=== PATIENT | female | born 1975 | race Caucasian/White ===

== ENCOUNTER 2017-01-19 10:12 | Emergency (ER) | payer SELFPAY ==
[~2017-01-19] VITALS: Ht 165.1 cm; Wt 68.9 kg
[2017-01-19 10:14] VITALS: BP 114/76
== END 2017-01-19 10:55 | disposition home or self-care (01) ==
LOC: ED 10:51
DX: J20.9 Acute bronchitis, unspecified (principal); B96.89 Other specified bacterial agents as the cause of diseases classified elsewhere; F17.200 Nicotine dependence, unspecified, uncomplicated
CPT/HCPCS: 99283